=== PATIENT | male | born 1945 | race Caucasian/White ===

== ENCOUNTER 2023-03-27 19:18 | Emergency (ER) | payer MEDICARE, SELFPAY ==
[2023-03-27 19:25] VITALS: BP 126/72; PULSE 88; RESP 18; TEMP 36.7; O2SAT 98; BMI 22.5
--- NOTE | 2023-03-27 19:35 | XR_ITS ---
The [address] [address] Patient Name: STACEY GAGNON MRN: [id number] date: 1945 Sex: M Assigned Patient Location: ER Current Patient Location: ER Accession/Order Number: [id number] Exam Date: 03/27/2023 19:55 Report Date: 03/27/2023 21:32 At the request of: ROXANA KEARNEY Procedure: XR lumbar spine min 4V EXAM: LUMBAR SPINE HISTORY: Low back pain after falling off a ladder. Patient states he did not hit his head. Patient had a right hip replacement in August 2022. Patient having left-sided back pain. TECHNIQUE: 5 views of the lumbar spine are submitted for review. COMPARISON: None. FINDINGS: 5 nonrib-bearing vertebral bodies. Evaluation of pars defects is limited due to overlying bowel gas. Multilevel degenerative disc disease is demonstrated. Bone mineralization is decreased. Evaluation of the right SI joint is limited due to some overlying bowel gas. Left hip arthroplasty incompletely imaged. Question of a nondisplaced hairline fracture seen through the coccyx. Multilevel degenerative disc disease demonstrated. Left-sided pars defect seen at L4 which is age indeterminate. XR/XR lumbar spine min 4V IMPRESSION: 1. Nondisplaced hairline fracture seen through the coccyx is age indeterminate. Please correlate with patient's point tenderness. If clinically indicated dedicated imaging of the sacrum and coccyx would help better delineate. 2. 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 3. Osteopenia. 4. Multilevel degenerative disc disease. Electronically authenticated by: GIULIANO WHITE Date: 03/27/2023 21:32
--- NOTE | 2023-03-27 19:35 | XR_ITS ---
The [address] [address] Patient Name: STACEY GAGNON MRN: [id number] date: 1945 Sex: M Assigned Patient Location: ER Current Patient Location: ER Accession/Order Number: [id number] Exam Date: 03/27/2023 19:55 Report Date: 03/27/2023 21:23 At the request of: ROXANA KEARNEY Procedure: XR chest 2V EXAM: XR chest 2V REASON FOR EXAM: Male, 78 years, thoracic back pain s/p fall. TECHNIQUE: PA and lateral views of the chest are performed. COMPARISON: 03/31/2020. FINDINGS: The lungs are expanded and clear. Normal pleura. Similar elevation of the left hemidiaphragm. Normal size heart. Normal mediastinum and dionne. Normal visualized pulmonary arteries. Normal visualized aortic arch and descending thoracic aorta. There are diffuse degenerative changes of the thoracic spine. Normal visualized ribs, clavicles, and shoulders. There is no demonstrated abnormality of the visualized soft tissue structures of the upper abdomen. XR/XR chest 2V IMPRESSION: No acute process in the chest. Electronically authenticated by: GLORIA JARA Date: 03/27/2023 21:23
--- NOTE | 2023-03-27 19:38 | ED_ITS ---
Documented by User: VENU Case 03/27/23 21:33 HPI - Back Pain/Injury General Chief Complaint: Back Pain/Injury Stated Complaint: FALL/BACK INJURY Time Seen by Provider: 03/27/23 19:30 Source: patient Mode of arrival: walk-in Limitations: no limitations History of Present Illness HPI Narrative: patient is a 78-year-old male presents to the Emergency Room for evaluation of back pain. Patient states he was hanging a cabinet standing on a ladder approximately 4 foot tall when he fell backwards landing on his lower back and left buttock. Patient has. A history of right hip replacement. Ambulatory on arrival. Patient has a skin tear to the left hand which is nontender. Unsure of his last tetanus. Patient denies being on any blood thinner medication and states he did not hit his head or neck. Denies loss of consciousness. Spouse at bedside was home at time of fall but was not present to witness the episode. Patient has localized pain in his mid to lower back worse with movement. MD elicited complaint: Reports back pain and fall Location: Reports lumbar spine, thoracic spine and left lower back Radiation: Reports none Exacerbating factors: Reports none Related Data Previous Rx's Medication Instructions Recorded ibuprofen 600 mg tablet 600 mg PO TID PRN pain #30 tabs 03/27/23 tizanidine 4 mg capsule (Zanaflex) 4 mg PO .qhs 7 days #7 caps 03/27/23 Allergies Allergy/AdvReac Type Severity Reaction Status Date / Time No Known Drug Allergies Allergy Verified 03/27/23 19:35 Review of Systems ROS Constitutional Denies: fever or chills Eyes Denies: change in vision or blurry vision Cardiovascular Denies: chest pain or palpitations Respiratory Denies: shortness of breath or cough Gastrointestinal Denies: abdominal pain, nausea or vomiting Musculoskeletal Reports: back pain; Denies: neck pain, extremity pain, extremity swelling or joint pain Integumentary/Breast Denies: rash, itching or redness Neurological Denies: headache or numbness in extremities Psychiatric Denies: anxiety or mood swings Endocrine Denies: excessive urination Allergic/Immunologic Denies: hives Exam Narrative Exam Narrative: Vital Signs reviewed and nurse's notes reviewed. The patient is not hypoxic. General: Alert, no acute distress, patient resting comfortably Skin: warm, intact, no pallor noted, no rash, nontender skin tear to the left hand approximately 1 inch. Bleeding controlled on arrival. Head: Normocephalic, atraumatic Eye: Normal conjunctiva, EOMI Respiratory: No acute distress, no chest wall tenderness. Lung sounds are clear. Abdomen: Normal bowel sounds, soft, No signs of trauma. pt had pain to left anterior lower ribs on initial palpation then repeat palpation was nontender. no splenic or hepatic tenderness. , no masses detected. No rebound, guarding, or rigidity noted. No midline pulsatile mass. Back: inspection of the back shows no obvious deformity,small abrasion to the left scapula nontender. Positive tenderness paravertebral thoracic and lumbar mostly on the left. No significant midline bony tenderness. Patient notes pain with forward flexion. no swelling, no ecchymosis, contusion, swelling, erythema, fluctuance or induration. No step offs or crepitus noted. No CVA tenderness noted bilaterally. Tenderness noted to left lumbar lower back , Left SI region. . Straight leg raise on left is negative. Straight leg raise on right is negative . Musculoskeletal: No deformity noted to bilateral lower extremities. no pain with gentle range of motion bilateral hips. no cyanosis or mottling noted. normal pulses at DP and PT 2+ bilaterally and symmetrically. Normal 5/5 strength at ankles with dorsiflexion and plantar flexion. Patient is able to a mbulate. Normal sensation noted to the bilateral lower extremities.no bony tenderness to the left hand. Neurological: alert and oriented x4, normal sensory and motor observed. DTR 2+ at patellar and achilles bilaterally. Psychiatric: Cooperative Constitutional Vital Signs, click to edit/add: Last Vital Signs Temp 98.0 F 03/27/23 19:25 Pulse 88 03/27/23 19:25 Resp 18 03/27/23 19:25 BP 126/72 03/27/23 19:25 Pulse Ox 98 03/27/23 19:25 O2 Del Method Room Air 03/27/23 19:25 Course Vital Signs Vital signs: Vital Signs Temperature 98.0 F 03/27/23 19:25 Pulse Rate 88 03/27/23 19:25 Respiratory Rate 18 03/27/23 19:25 Blood Pressure 126/72 03/27/23 19:25 Pulse Oximetry 98 03/27/23 19:25 Oxygen Delivery Method Room Air 03/27/23 19:25 Temperature 98.0 F 03/27/23 19:25 Pulse Rate 88 03/27/23 19:25 Respiratory Rate 18 03/27/23 19:25 Blood Pressure 126/72 03/27/23 19:25 Pulse Oximetry 98 03/27/23 19:25 Oxygen Delivery Method Room Air 03/27/23 19:25 MDM - Back Pain/Injury MDM Narrative Medical decision making narrative: patient presents with fall from ladder, denies head or neck injury. Lives with spouse who can observe. Patient on on a blood thinning medications. We discussed medication for pain, patient be given Norflex IM and Toradol IM. Tetanus shot will be updated. We discussed his right hip replacement and abrasion the left hand, no signs or symptoms of infection but we'll need to watch for any redness or streaking with patient's concern for antibiotic use. Patient encouraged to ice and elevate. X-rays performed of the chest, lumbar spine and pelvis.patient again denies hitting his head or neck. Denies headache or visual disturbance. skin tear to the left hand was cleansed and dressed with Steri-Strips. Gauze bandage applied. X-rays discussed at bedside. No radicular symptoms. Pain with forward flexion in back, mid spine arthritis noted. Patient reevaluated, noted he felt much better after IM medications. He'll be sent home on Motrin orally three times a day and muscle relaxant for a bedtime. We discussed ice, staying active but not overdoing things and possible physical therapy needed. Patient aware of his mid back arthritis. We discussed follow-up and patient mentions that he is seeing his family doctor tomorrow morning. The patient is to followup with primary care physician as scheduled or to return to the emergency department should any of the signs or symptoms worsen or new symptoms develop. Patient had questions answered. The patient agrees with the following Diagnosis and Treatment plan and the patient will be discharged home. Imaging Data Chest x-ray: Attestation: I have reviewed the pertinent imaging results. My impression: Radiologist: Report Procedure: XR chest 2V EXAM: XR chest 2V REASON FOR EXAM: Male, 78 years, thoracic back pain s/p fall. TECHNIQUE: PA and lateral views of the chest are performed. COMPARISON: 03/31/2020. FINDINGS: The lungs are expanded and clear. Normal pleura. Similar elevation of the left hemidiaphragm. Normal size heart. Normal mediastinum and dionne. Normal visualized pulmonary arteries. Normal visualized aortic arch and descending thoracic aorta. There are diffuse degenerative changes of the thoracic spine. Normal visualized ribs, clavicles, and shoulders. There is no demonstrated abnormality of the visualized soft tissue structures of the upper abdomen. IMPRESSION: No acute process in the chest. Electronically authenticated by: GLORIA JARA Date: 03/27/2023 21:23 Discharge Plan Discharge Chief Complaint: Back Pain/Injury Clinical Impression: Low back pain, Skin tear of left hand without complication, Thoracic back pain Patient Disposition: Home, Self-Care Time of Disposition Decision: 21:28 Condition: Good Mode of Transportation: Private Vehicle Prescriptions / Home Meds: New ibuprofen 600 mg tablet 600 mg PO TID PRN (Reason: pain) Qty: 30 0RF tizanidine [Zanaflex] 4 mg capsule 4 mg PO .qhs 7 Days Qty: 7 0RF Instructions: Back Pain (ED), Laceration Without Closure (ED) Stand Alone Forms: Portal Instructions Referrals: NIKKI PATEL [Primary Care Provider] - As needed Discharge Date/Time: 03/27/23 21:40 Documented by User: Leonie Dick MD 03/28/23 06:07 HPI - Back Pain/Injury General Chief Complaint: Back Pain/Injury Stated Complaint: FALL/BACK INJURY Time Seen by Provider: 03/27/23 19:30 Related Data Previous Rx's Medication Instructions Recorded ibuprofen 600 mg tablet 600 mg PO TID PRN pain #30 tabs 03/27/23 tizanidine 4 mg capsule (Zanaflex) 4 mg PO .qhs 7 days #7 caps 03/27/23 Allergies Allergy/AdvReac Type Severity Reaction Status Date / Time No Known Drug Allergies Allergy Verified 03/27/23 19:35 Exam Constitutional Vital Signs, click to edit/add: Last Vital Signs Temp 98.0 F 03/27/23 19:25 Pulse 88 03/27/23 19:25 Resp 18 03/27/23 19:25 BP 126/72 03/27/23 19:25 Pulse Ox 98 03/27/23 19:25 O2 Del Method Room Air 03/27/23 19:25 Course Vital Signs Vital signs: Vital Signs Temperature 98.0 F 03/27/23 19:25 Pulse Rate 88 03/27/23 19:25 Respiratory Rate 18 03/27/23 19:25 Blood Pressure 126/72 03/27/23 19:25 Pulse Oximetry 98 03/27/23 19:25 Oxygen Delivery Method Room Air 03/27/23 19:25 Temperature 98.0 F 03/27/23 19:25 Pulse Rate 88 03/27/23 19:25 Respiratory Rate 18 03/27/23 19:25 Blood Pressure 126/72 03/27/23 19:25 Pulse Oximetry 98 03/27/23 19:25 Oxygen Delivery Method Room Air 03/27/23 19:25 MDM - Back Pain/Injury MDM Narrative Medical decision making narrative: patient presents with fall from ladder, denies head or neck injury. Lives with spouse who can observe. Patient on on a blood thinning medications. We discussed medication for pain, patient be given Norflex IM and Toradol IM. Tetanus shot will be updated. We discussed his right hip replacement and abrasion the left hand, no signs or symptoms of infection but we'll need to watch for any redness or streaking with patient's concern for antibiotic use. Patient encouraged to ice and elevate. X-rays performed of the chest, lumbar spine and pelvis.patient again denies hitting his head or neck. Denies headache or visual disturbance. skin tear to the left hand was cleansed and dressed with Steri-Strips. Gauze bandage applied. X-rays discussed at bedside. No radicular symptoms. Pain with forward flexion in back, mid spine arthritis noted. Patient reevaluated, noted he felt much better after IM medications. He'll be sent home on Motrin orally three times a day and muscle relaxant for a bedtime. We discussed ice, staying active but not overdoing things and possible physical therapy needed. Patient aware of his mid back arthritis. We discussed follow-up and patient mentions that he is seeing his family doctor tomorrow morning. The patient is to followup with primary care physician as scheduled or to return to the emergency department should any of the signs or symptoms worsen or new symptoms develop. Patient had questions answered. The patient agrees with the following Diagnosis and Treatment plan and the patient will be discharged home. Patient's sacrum x-ray question a hairline fracture over the coccyx. The patient does not have any pain to the coccyx. Attending physician attestation I have reviewed the mid-level documentation, agree with the documentation, medical decision making and treatment plan as outlined by the mid-level [facility] er. Discharge Plan Discharge Chief Complaint: Back Pain/Injury Clinical Impression: Low back pain, Skin tear of left hand without complication, Thoracic back pain Patient Disposition: Home, Self-Care Time of Disposition Decision: 21:28 Condition: Good Mode of Transportation: Private Vehicle Prescriptions / Home Meds: New ibuprofen 600 mg tablet 600 mg PO TID PRN (Reason: pain) Qty: 30 0RF tizanidine [Zanaflex] 4 mg capsule 4 mg PO .qhs 7 Days Qty: 7 0RF Instructions: Back Pain (ED), Laceration Without Closure (ED) Stand Alone Forms: Portal Instructions Referrals: NIKKI PATEL [Primary Care Provider] - As needed Discharge Date/Time: 03/27/23 21:40
--- NOTE | 2023-03-27 19:40 | XR_ITS ---
The [address] [address] Patient Name: STACEY GAGNON MRN: [id number] date: 1945 Sex: M Assigned Patient Location: ER Current Patient Location: Accession/Order Number: [id number] Exam Date: 03/27/2023 19:55 Report Date: 03/27/2023 21:46 At the request of: ROXANA KEARNEY Procedure: XR pelvis 1-2V CLINICAL HISTORY: low back pain , history of hip replacement. Status post fell off the ladder, left-sided back, hip pain. EXAMINATION: AP pelvis: 03/27/2023. COMPARISON: Left hip with pelvis: 08/26/2017. FINDINGS: Single AP view is provided which demonstrate since the previous study patient has undergone right or possibly place which is anatomically aligned. There is moderate narrowing of the left hip joint without definite fractures or dislocations. The visualized lower lumbar vertebral bodies demonstrate degenerative changes. Sacrum, pelvic bones appear intact. Surrounding soft tissues are normal. There are no abnormal calcifications. XR/XR pelvis 1-2V IMPRESSION: 1. No obvious fractures or dislocations of the visualized bony pelvis or the visualized hip joints. There are no hardware associated complications involving the right hip joint. 2. There is moderate degenerative change involving the left hip joint. Electronically authenticated by: SARTHAK CAR Date: 03/27/2023 21:46
[2023-03-27] MEDS: ORPHENADRINE 60 MG/ 2 ML VIAL IM (19:51)
[2023-03-27] MEDS: KETOROLAC TROMETHAMINE 60 MG/2 ML VIAL IM (19:52)
[2023-03-27] MEDS: ADACEL DIPH,PERTUSS(ACELL),TET VAC/PF 0.5 ML ADULT SYRINGE IM (19:52)
== END 2023-03-27 21:40 | disposition home or self-care (01) ==
PROVIDERS: Emergency Provider Emergency Medicine; PCP Family Medicine
DX: M54.6 Pain in thoracic spine (principal); M54.50 Low back pain, unspecified; S61.412A Laceration without foreign body of left hand, initial encounter; W11.XXXA Fall on and from ladder, initial encounter; Z96.641 Presence of right artificial hip joint
CPT/HCPCS: 71046; 72110; 72170; 90471; 90715; 99284

== ENCOUNTER 2023-04-16 07:58 | Outpatient (OUT) | payer MEDICARE, SELFPAY ==
--- NOTE | 2023-04-16 | CT_ITS ---
The [address] [address] Patient Name: STACEY GAGNON MRN: [id number] date: 1945 Sex: M Assigned Patient Location: CT Current Patient Location: CT Accession/Order Number: [id number] Exam Date: 04/16/2023 08:10 Report Date: 04/16/2023 09:27 At the request of: NIKKI PATEL Procedure: CT pelvis wo con EXAMINATION: CT pelvis wo con HISTORY: coccyx pain M53.3 closed fracture S32.2xxa COMPARISON: 03/27/2023 plain x-ray TECHNIQUE: Axial, Coronal, and Sagittal CT images obtained without IV contrast. Dose reduction techniques were achieved by using automated exposure control and/or adjustment of mA and/or kV according to patient size and/or use of iterative reconstruction technique. FINDINGS: URINARY BLADDER: No visible focal wall thickening, lesion, or calculus. LYMPH NODES: No adenopathy. BOWEL: Moderate colonic diverticulosis. Nonobstructive bowel gas pattern. Normal appendix PELVIC ORGANS: Mild Central prostate gland calcifications ANTERIOR WALL: No hernia. BONES: Contour deformity of the distal coccyx is observed this is best seen on sagittal images 56 and 57, a nondisplaced fracture is favored, this is lower in location within the abnormality identified on plain film. No fracture identified in the coccyx in the area of the plain film abnormality. Moderate diffuse degenerative spondylosis and facet osteoarthropathy of the lumbosacral spine. Right hip total arthroplasty with no mechanical failure. Moderate left hip osteoarthritis with joint space narrowing marginal osteophyte formation and subchondral sclerosis of the cranial femoral head and superior acetabulum OTHER: Negative. CT/CT pelvis wo con IMPRESSION: Subtle nondisplaced fracture coccyx (Co3 body) Electronically authenticated by: CRISTIAN ROLAND Date: 04/16/2023 09:27
== END 2023-04-16 07:59 | disposition home or self-care (01) ==
LOC: CT 07:59
PROVIDERS: PCP Family Medicine; Visit Provider Family Medicine
DX: S32.2XXA Fracture of coccyx, initial encounter for closed fracture (principal); M53.3 Sacrococcygeal disorders, not elsewhere classified
CPT/HCPCS: 72192

== ENCOUNTER 2025-07-12 07:58 | Outpatient (OUT) | payer MEDICARE, SELFPAY ==
--- NOTE | 2025-07-12 08:03 | CA_ITS ---
Patient Name: STACEY GAGNON MR#: [id number] : 1945 Exam Date: 07/12/2025 Ordering Doctor: DR NIKKI PATEL M.D. ECHOCARDIOGRAM REPORT PROCEDURE: CA ECHO DOPPLER COMPLETE INDICATIONS: Abnormal EKG, RBBB COMPARISON: None. DESCRIPTION: COMPLETE ECHOCARDIOGRAM Real-time transthoracic echocardiography with 2D, M-mode, spectral and color flow Doppler performed. QUALITY: Technical quality was good. LEFT VENTRICLE: Normal chamber size. Normal left ventricular wall thickness. Global left ventricular systolic function is normal. The septum is abnormal in motion likely due to bundle branch block. Visual estimation of left ventricular ejection fraction is 55-60%. LV EF: Normal left ventricular ejection fraction, (>55%). DIASTOLIC: Normal diastolic function. ATRIAL SEPTUM: LEFT ATRIUM: Mild dilatation. RIGHT ATRIUM: Mild dilatation. RIGHT VENTRICLE: Mild dilatation. Borderline right ventricular systolic function. TRICUSPID VALVE: Normal mobility and thickness. No stenosis with trivial regurgitation. No evidence of pulmonary hypertension. The RVSP measures 29 mmHg. MITRAL VALVE: Normal mobility and thickness. No evidence of mitral valve stenosis. Mitral annular calcification. No mitral regurgitation. AORTIC VALVE: Normal trileaflet appearance. No visible sclerosis. Normal leaflet mobility. No evidence of aortic valve stenosis. Trivial aortic regurgitation. AORTIC ROOT: Normal diameter and appearance. The aortic root measures 3.8 cm. The ascending aorta is normal in size and measures 2.4 cm. PULMONIC VALVE: Normal thickness and mobility. No stenosis. Mild regurgitation. PERICARDIUM: No evidence of pericardial effusion. IVC: Collapses with inspiration. The IVC is normal in size measuring 1.9cm. PLEURA: CONCLUSION: 1. Normal left ventricular size and systolic function. Estimated LVEF is 55-60%. 2. Mildly dilated right ventricle with borderline systolic function. 3. Normal diastolic function. 4. Mild biatrial dilatation. 5. No significant valvular dysfunction. 6. Normal right-sided pressures. Adult Echocardiography Procedure Report Left Ventricle LVEDD (3.7 - 5.6 cm): 4.65 cm LVESD (2.2 - 4.0 cm): 3.01 cm LVIVS thickness (0.6 - 1.2 cm): 1.03 cm LVPW thickness (0.5 - 1.0 cm): 1.02 cm e': 0.10 m/s E - e': 5.49 LVOT Max Gradient: 3.58 mm[Hg] LVOT Area (cm2): 0.95 m/s Peak Velocity (LVOT): 0.95 m/s Mean Velocity (LVOT): 0.65 m/s LVOT Diameter 2.14 cm Left Ventricular Ejection Fraction: 55-60 % Left Atrium LA Volume Index (2D A2C): 22.94 ml/m2 Left Atrium Systolic Dimension: 3.43 cm Mitral Valve MV E to A Ratio: 0.75 Mitral Valve A-Wave Peak Velocity: 0.77 m/s Mitral Valve E-Wave Peak Velocity: 0.57 m/s Right Ventricle RV Internal Diastolic Dimension: 4.55 cm Aorta AO Root Diam: 3.77 cm Ascending Ao Diam: 2.42 cm Aortic Valve AoV Area (Peak Martin): 2.91 cm2, 2.91 cm2 AoV Area (VTI): 2.92 cm2, 2.92 cm2 Peak Velocity(Antegrade Flow): 1.17 m/s Peak Gradient(Antegrade Flow): 5.49 mm[Hg] Mean Velocity(Antegrade Flow): 0.76 m/s Mean Gradient(Antegrade Flow): 2.76 mm[Hg] Velocity Time Integral: 23.81 cm Tricuspid Valve Peak Velocity (Regurgitant Flow): 2.43 m/s, 2.57 m/s, 2.41 m/s, 2.31 m/s Pulmonic Valve Mean Gradient: 2.54 mm[Hg], 1.79 mm[Hg] Mean Velocity: 0.77 m/s, 0.62 m/s Peak Velocity: 0.95 m/s Peak Gradient: 3.97 mm[Hg], 3.27 mm[Hg] Right Atrium Right Atrium Systolic Pressure: 88.78 ml, 88.78 ml Dictated by: aIn Fernandez M.D. on 07/12/2025 at 21:09 Approved by: Ian Fernandez M.D. on 07/12/2025 at 21:17
== END 2025-07-12 07:59 | disposition home or self-care (01) ==
LOC: CARD 08:01
PROVIDERS: PCP Family Medicine; Visit Provider Family Medicine
DX: R94.31 Abnormal electrocardiogram [ECG] [EKG] (principal); I45.10 Unspecified right bundle-branch block
CPT/HCPCS: 93306